=== PATIENT | male | born 1990 | race Two or more races ===

== ENCOUNTER 2021-08-20 14:01 | Outpatient (CLI) | payer OTHER ==
[2021-08-20 14:52] VITALS: BP 139/89
--- NOTE | 2021-08-20 14:52 | SLEEP CARE CONSULTATION ---
Information from patient questionnaire entered by Makayla Singh MA. I have reviewed and concur with the information entered by Makayla Singh MA. This document represents the service I personally performed and the decisions made by me, Bianka Brewster ARNP. History of Present Illness Service Date and Time: 08/20/2021 1401 Reason for Visit: New patient Chief Complaint: reports: Snoring, Excessive daytime sleepiness, Observed pauses in breathing, Fatigue, Other (falling asleep while driving and while sitting at work) Date of Onset: some longer than others Usual bedtime: 9-10 pm Time it takes to fall asleep: not very long 5 minutes Snores at night: Yes Observed to quit breathing while asleep: Yes Sleeps alone due to snoring: Yes Number of times waking at night: 2-3 Reasons for waking at night: reports: Choking, Snoring, Gasping for air, Bathroom Toss, Turn, or Twitch while sleeping: Yes Recalls having dreams: No (sometimes do/sometimes don't) Usually gets out of bed at: [id number] Feels refreshed in the morning: No Morning headache: Yes (stays all day, every day) Sleepy or fatigued during the day: Yes Ever fallen asleep while driving: Yes (drowsy driving, no accidents so far) Takes day naps: Yes (30-60 mins after work, also on weekends if time permits) Dreams during day naps: Yes Prior sleep studies: No Additional HPI information: I had the pleasure of seeing CORDELIA SANTIAGO today regarding the possibility of him having a sleep disorder. His current complaints are excessive daytime sleepiness, fatigue, frequent night awakenings, observed pauses in breathing, snoring and unrefreshed sleep. He has been having issues of falling asleep while driving. He has videos his has seen him snoring loudly and having pauses in breathing and then gasping for air. He has had others telling him about his pauses in breathing when asleep. He has been deployed a lot and has not been able to get this checked out. He has also gained a lot of weight and is heavier than he ever has been. He is not getting up feeling rested in the morning. He states he constantly has a headache/migraine that he wakes up and it stays all day. He is sleeping in another room so his and children can get better sleep. He has had times when he is at a computer at work that he has fallen asleep. 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 Patient is and lives in [place]. Have you smoked in the past 12 months: No Alcohol use: Yes Alcohol amount and frequency: 1-2, rarely Caffeine use: Yes Caffeine amount and frequency: 2-3 every day Family History Family history of sleep disordered breathing: Yes Family Hx Sleep Apnea: Mother: Snoring, Father: Snoring, Sleep apnea - Untreated, Sibling: Snoring, Sleep apnea - Treated Allergies and Home Medications Known drug allergies: No Drug allergies reviewed: Yes (NKDA) Home medication list reviewed: Yes Allergy and home medication list: Medication for heartburn/indigestion, prn Review of Systems Cardiovascular: denies: high blood pressure Respiratory: reports: shortness of breath Gastrointestinal: reports: heartburn Neurological: reports: headaches Psychiatric: reports: anxiety, depression Ear/Nose/Throat: reports: nasal congestion, sinus problems, dry mouth/throat, wisdom teeth removed (has lower two, uppers removed). denies: tonsillectomy Endocrine: reports: sluggishness, increased appetite Immunologic: reports: allergies to food or environment (pollen) Physical Exam Vital signs obtained and entered by: Samantha Higuera CMA AAMA Blood Pressure: 139/89 (Left) Cuff size: wrist Heart Rate: 89 O2 Saturation: 97 (with mask) Height: 6 ft 3 in Weight: 275 lb (with boots) Body Mass Index: 34.3 BMI Classification: Obese Neck circumference: 17.75 (inches) Mouth and throat: narrow oropharynx Soft palate: normal Hard palate: normal Uvula: normal Uvula visualization: 50% Mallampati Class II Tongue: enlarged in size with teeth loco on lateral edges Tonsils: 3+/kissing Neck: normal w/o lymphadenopathy or thyromegaly Heart: regular rate and rhythm Lungs: clear bilaterally Impression and Plan 1. Suspected Obstructive Sleep Apnea-Hypopnea Syndrome, as suggested by a history of loud and irregular snoring, observed cessation of breath while asleep, gasping or choking in sleep, morning headache, frequent awakening during the night, unrefreshed sleep, cognitive impairment, and excessive daytime sleepiness. Narrow oropharynx and obesity are common predisposing factors for obstructive sleep apnea-hypopnea syndrome. I recommend proceeding to polysomnography to confirm the diagnosis and to assess severity. If the patient has significant sleep disordered breathing, a manual CPAP titration study will also be performed to find the optimal treatment pressure. I informed the patient of what the sleep studies involve and after some discussion, obtained agreement to proceed. The pathophysiology of obstructive sleep apnea-hypopnea syndrome was discussed with the patient and health risks of cardiovascular and cere brovascular disease if not treated. Risks of drowsy driving discussed in detail and patient advised to avoid long distance driving and to boat puller at the first sign of drowsiness. Patient agreed to plan. * Schedule polysomnography +- manual CPAP titration study and return in 1-2 weeks after the study to discuss result and initiate therapy. * Avoid long distance driving or driving when feeling sleepy. * Avoid alcohol, sedative and muscle relaxant around bedtime. * Attempt to lose weight. * Review instructions provided by trained office staff on how to prepare for the sleep study. * Return for follow-up after sleep study completed. Counseling Topics: Weight loss health impact Visit Type: In Office Time Spent with Patient (minutes): 31 Provider Statement: I spent 100% of the Face to Face Visit with the patient with greater than 50% spent counseling the patient and coordination of care.
== END 2021-08-20 14:02 | disposition home or self-care (01) ==
LOC: SC 14:01
PROVIDERS: ATTEND Nurse Practitioner Family
DX: R06.83 Snoring (principal); R06.81 Apnea, not elsewhere classified; R51.9 Headache, unspecified; G47.8 Other sleep disorders; G47.10 Hypersomnia, unspecified; E66.9 Obesity, unspecified; Z68.34 Body mass index [BMI] 34.0-34.9, adult
CPT/HCPCS: 99203; 99212

== ENCOUNTER 2021-08-30 12:18 | Outpatient (CLI) | payer OTHER | END 2021-08-30 12:19 | disposition home or self-care (01) | LOC: SC 12:18 | PROVIDERS: ATTEND Nurse Practitioner Family | DX: G47.33 Obstructive sleep apnea (adult) (pediatric) (principal); R09.02 Hypoxemia | CPT/HCPCS: 95806 ==

== ENCOUNTER 2021-09-04 15:32 | Outpatient (CLI) | payer OTHER ==
[2021-09-04 16:37] VITALS: BP 134/90
--- NOTE | 2021-09-04 16:37 | SLEEP CARE CONSULTATION ---
Information from patient questionnaire entered by Makayla Singh MA. I have reviewed and concur with the information entered by Makayla Singh MA. This document represents the service I personally performed and the decisions made by , Bianka Brewster ARNP. History of Present Illness Service Date and Time: 09/04/2021 1532 Initial [place] Sleepiness Scale score: 20 Current [place] Sleepiness Scale score: 19 (2020) Additional HPI information: CORDELIA SANTIAGO returns for follow up and results of the recently performed home sleep study. I explained the pathophysiology behind obstructive sleep apnea. We then spent quite a bit of time discussing different treatment options. For mild obstructive sleep apnea, surgery and oral appliance are alternatives to nasal CPAP therapy but in moderate or severe cases, nasal CPAP is the most effective and reliable treatment. I reviewed the impact of weight changes on sleep apnea and strongly recommended losing weight. After some discussion, the patient opted to go with the nasal CPAP therapy. Nasal autoCPAP set at 4-15 cmH20 will be ordered with rationale explained. A manual titration study will be ordered if unable to find optimal pressure with office adjustments. I explained how CPAP machine works with sample device [id number] [id number] and what to expect when using the machine. Using CPAP every night in order to get used to it was emphasized. Patient advised to put CPAP mask on before getting into bed so as not to fall asleep without CPAP. To assist acclimation to CPAP use, it could also be used for a short time during day while reading or watching TV. The patient was instructed to call the CPAP supplier to discuss any mechanical problem that may occur. If the mask given is uncomfortable or is difficult to keep on through the night even with adjustment, contact the CPAP supplier as many will replace with another mask style if notified before 30 days. If snoring or perceives is not getting enough air or too much air from the machine, notify this office. AASM patient education PAP tips reviewed and given to patient. Patient counseled not drink alcohol less than 4 hours before bedtime as it can increase snoring and apnea. Patient was cautioned about risks of drowsy driving until sleepiness symptoms resolve. Sleep Study - Results Type of Sleep Study: Home sleep study Prior sleep studies: Yes Polysomnography/Home Sleep Study results: Physician Impression: The quality of the study is good. The length of the study is adequate (> 240 minutes). Please also see the tabulated and graphic data. 1. Obstructive Sleep Apnea-Hypopnea (ICD-10 G47.33), very severe, with an AHI of 77.9/hr and rosaura SaO2 of 59%. During the study, the patient had 855 apneas (854 obstructive, 1 central, 0 mixed) and 8 hypopneas. The longest episode lasted 58.0 seconds. The respiratory events occurred independently of body position (supine AHI was 79.3 and non-supine, 76.25). 2. Hypoxemia (ICD-10 R09.02), severe, with the lowest oxygen saturation of 59 % and 416.4 minutes with SaO2 under 90%. Baseline oxygen saturation was normal (Average oxygen saturation was 85%). Allergies and Home Medications Home medication list reviewed: Yes (no changes) Review of Systems Review of systems same as previous: Yes (no changes) Physical Exam Vital signs obtained and entered by: MIRIAM Larios Blood Pressure: 134/90 (right) Cuff size: wrist Heart Rate: 88 O2 Saturation: 98 (with mask) Height: 6 ft 3 in Weight: 275 lb (with winter clothes) Body Mass Index: 34.3 BMI Classification: Obese Impression and Plan 1. Obstructive Sleep Apnea-Hypopnea Syndrome, very severe, with lowest oxygen saturation of 59%. Obviously this is the cause of the patients symptoms of unrefreshed sleep, and excessive daytime sleepiness. Positive pressure therapy could benefit his overall health and reduce risks for cardiovascular or cerebrovascular adverse events. As mentioned above, the patient will be started on nasal autoCPAP therapy with pressure set at 5-20 cmH2O. A manual titration study will be completed if unable to find optimal treatment pressure with office adjustments. Compliance guidelines also reviewed. A copy of compliance guidelines will be given for reference at check out. 2. Hypoxemia, severe, with the lowest oxygen saturation of 59 % and 416.4 minutes with SaO2 under 90%. His baseline oxygen saturation was low normal with an average oxygen saturation of 85%. * Nasal auto CPAP therapy, pressure at 5-20 cm H2O; Urgent setup due to low rosaura oxygen saturation * Attempt to lose weight. * Avoid alcohol consumption near bedtime. * Elevate head to sleep until using CPAP. * The patient is again cautioned about driving until sleepiness completely resolves. * Return one month after CPAP obtained. I will assess response to therapy and compliance at that time. Counseling Topics: Weight loss health impact Visit Type: In Office Time Spent with Patient (minutes): 20 Provider Statement: I spent 100% of the Face to Face Visit with the patient with greater than 50% spent counseling the patient and coordination of care.
== END 2021-09-04 15:33 | disposition home or self-care (01) ==
LOC: SC 15:32
PROVIDERS: ATTEND Nurse Practitioner Family
DX: G47.33 Obstructive sleep apnea (adult) (pediatric) (principal); R09.02 Hypoxemia; E66.9 Obesity, unspecified; Z68.34 Body mass index [BMI] 34.0-34.9, adult
CPT/HCPCS: 99212; 99213